=== PATIENT | female | born 1980 | race African-American/Black ===

== ENCOUNTER 2016-09-07 16:19 | Emergency (ER) | payer SELFPAY ==
[~2016-09-07] VITALS: Ht 165.1 cm; Wt 81.6 kg
[2016-09-07 16:20] VITALS: BP 123/87; PULSE 88; RESP 16; TEMP 98.4; O2SAT 98
[2016-09-07] MEDS ORDERED: TOPIRAMATE 25 MG TABLET(TOPAMAX) PO ONE (17:00)
== END 2016-09-07 20:05 | disposition left against medical advice (07) ==
LOC: SED 16:19
DX: G43.909 Migraine, unspecified, not intractable, without status migrainosus (principal); Z88.8 Allergy status to other drugs, medicaments and biological substances
CPT/HCPCS: 99282